=== PATIENT | female | born 1990 ===

== ENCOUNTER → 2019-07-29 | Outpatient (REF) | payer OTHER, MEDICAID ==
--- NOTE | 2019-07-30 23:41 | IPNPDOC ---
Obstetrical Progress Note Date of Service Jul 30, 2019 Assessment Heart Rate (FHR): 130 Variability: Moderate Accelerations: Positive Decelerations: None Heart Rate Tracing: Category I Tocometer Frequency: irregular Sterile Vaginal Examination Dilation: 1cm (-2) Effacement (%): 50% Station: -2 Cervical Consistency: Soft Assessment and Plan Age: 29 : 2 Term: 1 Pre-term: 0 Abortions: 0 Livin Status: Reassuring Group B Streptococcus: Unknown Additional Comments Pt of [facility]. Presents with complaints of intermittent LOF. Hasn't worn a pad but has changed her undies a few times. Denies bleeding Spec exam neg pool, neg valsalva, neg nitrazine, neg fern. Will ambulate and reassess Jenae Gregorio CNM Jul 30, 2019 23:41
== END ==
LOC: M LAB REF 13:04
PROVIDERS: ATTEND Obstetrics & Gynecology
DX: Z3A.36 36 weeks gestation of pregnancy (principal)